=== PATIENT | female | born 2000 | race Caucasian/White ===

== ENCOUNTER 2024-05-24 14:29 | Emergency (ER) | payer OTHER, SELFPAY ==
[2024-05-24 14:48] VITALS: BP 127/83
[2024-05-24 15:24] LABS: % Basophils 0.4 % (0-2); % Eosinophils 0.2 % (0-6); % Immature Granulocytes 0.4 % (0-0.5); % Lymphocytes 2.7 % (20.5-51.1); % Monocytes 2.6 % (1.7-9.3); % Neutrophils 93.7 % (42.2-75.2); Absolute Basophils 0.1 10^3/uL (0-0.2); Absolute Immature Granulocytes 0.1 10^3/uL (0-0.05); Absolute Lymphocytes 0.4 10^3/uL (1.2-3.4); Absolute Monocytes 0.4 10^3/uL (0.1-0.6); Absolute Neutrophils 12.9 10^3/uL (1.4-6.5); Hematocrit 46.6 % (37.0-47.0); Hemoglobin 15.6 g/dL (12.0-16.0); Mean Corp Hgb Conc. 33.5 g/dL (33.0-37.0); Mean Corpuscular Hgb 25.3 pg (27.0-31.0); Mean Corpuscular Volume 75.6 fL (81.0-99.0); Mean Platelet Volume 10.9 fL (7.4-10.4); Nucleated Red Blood Cells % 0 %; Platelet Count 217 10^3/uL (130-400); Red Blood Cell Count 6.16 10^6/uL (4.20-5.40); Red Cell Dist. Width 13.3 % (11.5-14.5); White Blood Cell Count 13.8 10^3/uL (4.8-10.8)
[2024-05-24 15:27] LABS: HCG, Serum Qualitative Screen Negative
[2024-05-24 15:29] LABS: ALT (SGPT) 26 U/L (0-35); AST (SGOT) 29 U/L (14-36); Albumin 5.4 g/dl (3.5-5.0); Alkaline Phosphatase 93 U/L (38-126); Blood Urea Nitrogen 18 mg/dl (7-17); Calcium 9.7 mg/dl (8.4-10.2); Carbon Dioxide 23 mmol/L (22-30); Chloride 99 mmol/L (98-107); Glucose 108 mg/dl (70-99); Lipase 77 U/L (23-300); Sodium 135 mmol/L (135-145); Total Protein 8.3 g/dl (6.3-8.2); eGFR > 60.00
[2024-05-24 18:47] VITALS: BMI 29.2
--- NOTE | 2024-05-24 18:49 | ED.GENMED ---
History of Present Illness
General
Chief Complaint: Abdominal Symptoms
Source: patient
Time Seen by Provider: 05/24/24 18:42
History of Present Illness
History of Present Illness:
24-year-old female presenting to the emergency department for evaluation of nausea vomiting and diarrhea that started acutely around 5 AM this morning, states when she decided to come to the emergency department she was still having cramping and
persistent nausea however notes at time of my exam the nausea has gotten better. Patient notes she still has having some mild generalized abdominal cramping. She was unaware of any fevers, did not take any medications other than a ODT Zofran prior
to arrival. Denies any urinary symptoms, URI-like symptoms, known sick contacts, recent antibiotics or any other concerns.
Past History
Past History
ED Past Medical History: None
ED Past Surgical History: Tonsilectomy
Social History
Tobacco: Non-smoker
Alcohol: Occasional
Drug: None
Personal: Single
Living: with family
Employment: Employed
Review of Systems
Review of Systems
All Other Systems: ROS reviewed and negative except as documented in HPI and ROS
Phy Exam
Physical Exam
Physical Exam:
GENERAL: Alert , in no apparent distress, smiling and pleasant
EYE: clear conjunctiva b/l
HEAD: NCAT
ENT: mmm.
CARDIAC: Regular rate and rhythm .
LUNGS: Clear breath sounds bilaterally, no acute respiratory distress, no wheezes/rales/rhonchi
ABDOMEN: Soft, without focal tenderness, no r/g, no cvat, negative Barajas sign, no tenderness at McBurney's point
NEUROLOGICAL: Alert and oriented
SKIN: Warm and dry, skin intact.
MUSCULOSKELETAL: well perfused.
PSYCH: Normal and appropriate interaction.
Scores
Heart Failure Risk
Heart Failure Risk Score: Not Applicable
Heart Score for Chest Pain Patients
STEMI patient?: Not applicable
Withdrawal Assessment of Alcohol
Withdrawal Assessment Completed?: Not applicable
Course
Orders/Labs/Results
Orders:
Orders
05/24/24 14:50
Test Result ONCE
05/24/24 14:57
Complete Blood Count/With Diff Urgent
Comprehensive Metabolic Panel Urgent
HCG, Serum Qualitative Screen Urgent
Comment: Notify provider if positive test present
Lipase Urgent
Influenza A+B Rapid Molecular Urgent
FAWAD Source: Nasal Swab
Specimen Description:
05/24/24 18:50
0.9% Sodium Chloride 1000 ml [Nss] 1,000 ml IV BOLUS
Ketorolac [Toradol] 30 mg IV NOW STA
Ondansetron Injectable [Zofran] 4 mg IV NOW STA
Abnormal Lab Results
05/24/24
14:57
WBC 13.8 H 10^3/uL
(4.8-10.8)
RBC 6.16 H 10^6/uL
(4.20-5.40)
MCV 75.6 L fL
(81.0-99.0)
MCH 25.3 L pg
(27.0-31.0)
MPV 10.9 H fL
(7.4-10.4)
Abs Immat Gran (auto) 0.1 H 10^3/uL
(0-0.05)
Absolute Neuts (auto) 12.9 H 10^3/uL
(1.4-6.5)
Absolute Lymphs (auto) 0.4 L 10^3/uL
(1.2-3.4)
Neutrophils % 93.7 H %
(42.2-75.2)
Lymphocytes % 2.7 L %
(20.5-51.1)
BUN 18 H mg/dl
(7-17)
Glucose 108 H mg/dl
(70-99)
Total Protein 8.3 H g/dl
(6.3-8.2)
Albumin 5.4 H g/dl
(3.5-5.0)
05/24/24 14:57
05/24/24 14:57
Vital Signs
Initial and Last Documented VS:
Initial Vital Signs
Temp Pulse Resp BP Pulse Ox
100.2 F 124 16 127/83 100
05/24/24 14:48 05/24/24 14:48 05/24/24 14:48 05/24/24 14:48 05/24/24 14:48
Last Documented Vital Signs
Temp Pulse Resp BP Pulse Ox
99.4 F 124 16 106/67 100
05/24/24 18:45 05/24/24 14:48 05/24/24 14:48 05/24/24 19:00 05/24/24 19:17
MDM/Problems Addressed
Differential Diagnosis Includes:
Gastroenteritis, flu, electrolyte derangement, dehydration, less concern for surgical abdomen including appendicitis or cholecystitis
MDM/Problems Addressed:
24-year-old female presenting to the emergency department for evaluation of sudden onset nausea vomiting diarrhea that began acutely this morning around 5 AM. Symptoms are improved at time of my exam although patient still noting some mild
generalized discomfort. Labs, flu and testing ordered from triage reveal a mild leukocytosis. Low-grade fever from triage noted and at time of my exam when repeated was 99.4 orally. I have highest suspicion for gastroenteritis. Will
treat with Zofran, Toradol and fluids. Reassessment following.
*Pulse Oximetry
Patient hypoxic: no
*Critical Care Note
Total Time (30-74mins, 75-104mins- exclusive of procedures): Not Applicable
Patient Management
Escalation/DeEscalation of care consider admission/obs:
Following fluids, Zofran and Toradol patient reports significant relief of symptoms and feels well to be discharged home. Patient aware of return precautions. Prescription for Zofran sent to patient's pharmacy.
ED Attending Note
-
Portions of this chart may have been created with voice recognition software.� Occasional wrong word or��sound alike� substitutions may have occurred due to the inherent limitations of voice recognition software.
Discharge Plan
Departure
Patient Disposition: Home (Routine Discharge)
Date of Disposition: 05/24/24
Time of Disposition: 19:58
Patient with high blood pressure during this ER visit?: No
Discharge Problem:
Nausea, vomiting and diarrhea
Instructions: Nausea and Vomiting, Adult (DC)
Prescriptions:
New
ondansetron 4 mg tablet,disintegrating
4 mg PO TIDPRN PRN (Reason: nausea/vomiting) Qty: 8 0RF
Interventions
Interventions:
*Risk Screen - Suicide Last Done: 05/24/24 14:48
*General Assessment Last Done: 05/24/24 19:17
*Neglect/Abuse Screening Last Done: 05/24/24 14:48
ED- Fall Risk Assessment Last Done: 05/24/24 19:17
*ED COVID-19 Vaccine History Last Done: 05/24/24 19:17
*Nursing Disposition Last Done: 05/24/24 20:05
WP-[id number]-Kyairdgfuq Assessment Last Done: 05/24/24 19:17
Discharge Date and Time
Discharge Date/Time: 05/24/24 20:05
Print Language: PORTUGUESE
[2024-05-24 19:00] VITALS: BP 106/67
[2024-05-24] MEDS: NSS 1000 IV (19:02)
[2024-05-24] MEDS: ZOFRAN 4 MG IV (19:11)
[2024-05-24] MEDS: TORADOL 30 MG IV (19:11)
== END 2024-05-24 20:05 | disposition home or self-care (01) ==
LOC: EMR 14:29
PROVIDERS: Emergency Medicine; EMERGENCY PHYSICIAN Student in an Organized Health Care Education/Training Program; FAMILY PHYSICIAN Family Medicine
DX: R11.2 Nausea with vomiting, unspecified (principal); R19.7 Diarrhea, unspecified
CPT/HCPCS: 99284; 96374; 96375; 96361; 80053; 83690; 84703; 85025; 87502